=== PATIENT | male | born 1975 | race African-American/Black ===

== ENCOUNTER 2022-02-02 13:14 | Emergency (ER) | payer OTHER ==
[~2022-02-02] VITALS: Ht 190.5 cm; Wt 110.0 kg
[2022-02-02 13:32] VITALS: BP 149/98
--- NOTE | 2022-02-02 14:13 | PHYS DOC ---
Past History Additional Past Medical Histor: INSOMNIA (CIERRA [place]NADA APRN) Past Surgical History: Other Additional Past Surgical Histo: LUNG REMOVAL (CIERRA [place] APRN) Alcohol Use: None (CIERRA [place] APRN) General Adult EDM: Chief Complaint: KNEE INJURY HPI: HPI: Patient is a 46-year-old male who presents with left knee pain. Patient states he was walking outside when he slipped and fell and landed on his left knee. Patient is still able to ambulate. Denies taking anything for pain prior to arrival. Range of motion and sensation are both intact. History of hypertension, diabetes, hyperlipidemia. (CIERRA CANADA APRN) Review of Systems: Review of Systems: ROS At least 10 ROS systems have been reviewed and are negative except as documented in the HPI. General: Negative except as outlined in HPI above. Skin: Negative except as outlined in HPI above. HEENT: Negative except as outlined in HPI above. Neck: Negative except as outlined in HPI above. Respiratory: Negative except as outlined in HPI above.. Cardiovascular: Negative except as outlined in HPI above. Abdomen: Negative except as outlined in HPI above. : Negative except as outlined in HPI above. Back/MSK: Negative except as outlined in HPI above. Neuro: Negative except as outlined in HPI above. Psych: Negative except as outlined in HPI above. (CIERRA CANADA APRN) Physical Exam: PE: Constitutional: Well developed, well nourished, no acute distress, non-toxic appearance. [] HENT: Normocephalic, atraumatic, bilateral external ears normal, oropharynx moist, no oral exudates, nose normal. [] Eyes: PERRLA, EOMI, conjunctiva normal, no discharge. [] Neck: Normal range of motion, no tenderness, supple, no stridor. [] Cardiovascular:Heart rate regular rhythm, no murmur [] Lungs & Thorax: Bilateral breath sounds clear to auscultation [] Abdomen: Bowel sounds normal, soft, no tenderness, no masses, no pulsatile masses. [] Skin: Warm, dry, no erythema, no rash. [] Back: No tenderness, no CVA tenderness. [] Extremities: Left knee tenderness, ROM intact, mild swelling Neurologic: Alert and oriented X 3, normal motor function, normal sensory function, no focal deficits noted. [] Psychologic: Affect normal, judgement normal, mood normal. [] (CIERRA [place]NADA APRN) Current Patient Data: Vital Signs: Vital Signs Date Time Temp Pulse Resp B/P (MAP) Pulse Ox O2 Delivery O2 Flow Rate FiO2 02/02/22 13:32 98.0 80 18 149/98 (115) 97 Room Air (CIERRA [place]NADA APRN) EKG: EKG: [] (CIERRA [place] APRN) Radiology/Procedures: Radiology/Procedures: []EXAM: AP, lateral and sunrise views of the right knee. DATE: 02/02/2022 2:22 PM INDICATION: Reason: left knee pain, fall / Spl. Instructions: / History: COMPARISON: No Prior FINDINGS: No acute fracture or dislocation. No joint effusion. Joint spaces are preserved without significant degenerative/proliferative change. Patellar enthesophytes are seen. IMPRESSION: No acute fracture or dislocation. Electronically signed by: Ricky Allred MD (02/02/2022 2:31 PM) [facility] (CIERRA CANADA APRN) Heart Score: C/O Chest Pain: No Risk Factors: Risk Factors: DM, Current or recent (<one month) smoker, HTN, HLP, family history of CAD, obesity. Risk Scores: Score 0 - 3: 2.5% MACE over next 6 weeks - Discharge Home Score 4 - 6: 20.3% MACE over next 6 weeks - Admit for Clinical Observation Score 7 - 10: 72.7% MACE over next 6 weeks - Early Invasive Strategies (CIERRA CANADA APRN) Course & Med Decision Making: Course & Med Decision Making Pertinent Labs and Imaging studies reviewed. (See chart for details) [] 46-year-old male presents with left knee pain after a fall. Denies taking anything prior to arrival. X-ray of left knee ordered. Patient given Motrin for pain. Knee x-ray is unremarkable. Discussed results with patient. Educated on RICE. Advised patient he would need to follow-up with his PCP for possible further imaging if pain does not resolve in the next 5 to 7 days. Ibuprofen and Tylenol for pain. Patient is appreciative and okay with discharge plan. (CIERRA CANADA APRN) Dragon Disclaimer: Dragchucho Disclaimer: This electronic medical record was generated, in whole or in part, using a voice recognition dictation system. (CIERRA CANADA APRN) Attending Co-Sign The patient was seen and interviewed as well as examined at the bedside. The chart was reviewed. The case was discussed. Agree with the plan of care. (NATALY FERNANDO DO) Departure Departure: Impression: Primary Impression: Knee pain Qualified Codes: M25.562 - Pain in left knee Disposition: HOME / SELF CARE / HOMELESS Condition: STABLE Referrals: OLAYINKA HERNÁNDEZ DO (PCP) Patient Instructions: Knee Pain, [id number] Additional Instructions: You were seen in the emergency room for knee pain after a fall. X-ray was unremarkable. Rest, ice, elevate to help with pain and swelling. You need to follow-up with your PCP in the next 5 to 7 days if pain does not resolve for p ossible further imaging. Ibuprofen and Tylenol for pain. Return to the emergency room if you have worsening symptoms or concerns. EMERGENCY DEPARTMENT GENERAL DISCHARGE INSTRUCTIONS Thank you for coming to [facility] (ED) today and trusting us with you care. We trust that you had a positivie experience in our Emergency Department. If you wish to speak to the department management, you may call the director at [phone]. YOUR FOLLOW UP INSTRUCTIONS ARE FOLLOWS: 1. Do you have a private Doctor? If you do not have a private doctor, please ask for a resource list of physicians or clinics that may be able to assist you with follow up care. 2. The Emergency Physician has interpreted your x-rays. The X-Ray specialist will also review them. If there is a change in the findings, you will be notified in 48 hours when at all possible. 3. A lab test or culture has been done, your results will be reviewed and you will be notified if you need a change in treatment. ADDITIONAL INSTRUCTIONS AND INFORMATION: 1. Your care today has been supervised by a physician who is specially trained in emergency care. Many problems require more than one evaluation for a complete diagnosis and treatment. We recommend that you schedule your follow up appointment as recommended to ensure complete treatment of you illness or injury. If you are unable to obtain follow up care and continue to have a problem, or if your condition worsens, we recommend that you return to the ED. 2. We are not able to safely determine your condition over the phone nor are we able to give sound medical advice over the phone. For these safety reasons, if you call for medical advice we will ask you to come to the ED for further evaluation. 3. If you have any questions regarding these discharge instructions please call the ED at [phone]. SAFETY INFORMATION: In the interest of safety, wellness, and injury prevention; we encourage you to wear your sealbelt, if you smoke; quite smoking, and we encourage family to use a protective helmet for bicycling and other sporting events that present an increased risk for head injury. IF YOUR SYMPTOMS WORSEN OR NEW SYMPTOMS DEVELOP, OR YOU HAVE CONCERNS ABOUT YOUR CONDITION; OR IF YOUR CONDITION WORSENS WHILE YOU ARE WAITING FOR YOUR FOLLOW UP APPOINTMENT; EITHER CONTACT YOUR PRIMARY CARE DOCTOR, THE PHYSICIAN WHOSE NAME AND NUMBER YOU WERE GIVEN, OR RETURN TO THE ED IMMEDIATELY. CIERRA [place]NA[place] APRN Feb 02, 2022 14:13 NATALY FERNANDO DO Feb 03, 2022 11:20
[2022-02-02] MEDS ORDERED: IBUPROFEN 600 MG TABLET. PO ONE ×2 (14:15→14:21)
--- NOTE | 2022-02-02 14:34 | RAD ---
EXAM: AP, lateral and sunrise views of the right knee. DATE: 02/02/2022 2:22 PM INDICATION: Reason: left knee pain, fall / Spl. Instructions: / History: COMPARISON: No Prior FINDINGS: No acute fracture or dislocation. No joint effusion. Joint spaces are preserved without significant degenerative/proliferative change. Patellar enthesophytes are seen. IMPRESSION: No acute fracture or dislocation. Electronically signed by: Ricky Allred MD (02/02/2022 2:31 PM) [id number]
== END 2022-02-02 15:14 | disposition home or self-care (01) ==
LOC: ER 13:14
DX: M25.562 Pain in left knee (principal); R22.42 Localized swelling, mass and lump, left lower limb; W01.0XXA Fall on same level from slipping, tripping and stumbling without subsequent striking against object, initial encounter; Y93.01 Activity, walking, marching and hiking; Y92.89 Other specified places as the place of occurrence of the external cause; Y99.8 Other external cause status
CPT/HCPCS: 73562; 99284